=== PATIENT | female | born 2000 | race Caucasian/White ===

== ENCOUNTER 2022-03-01 15:18 | Emergency (ER) | payer BC, SELFPAY ==
--- NOTE | ~2022-03-01 | XR_ITS ---
EXAMINATION: XR FINGER, RIGHT CLINICAL INFORMATION: Pain. Injury. COMPARISON: None TECHNIQUE: 3 views of the right hand second digit. FINDINGS: No fracture or cortical disruption. Alignment is anatomic. Joint spaces are maintained. The soft tissues are unremarkable. XR/XR finger RT min 2V IMPRESSION: Normal finger radiographs.
[2022-03-01 15:24] VITALS: BP 150/87; PULSE 81; RESP 19; TEMP 36.1; O2SAT 98; BMI 45.8
--- NOTE | 2022-03-01 15:48 | ED.EXTPRO ---
HPI - Extremity Problem General Chief complaint: Extremity Injury, Upper Stated complaint: finger lac Time Seen by Provider: 03/01/22 15:48 Source: patient Mode of arrival: ambulatory Limitations: no limitations History of Present Illness HPI Narrative: Patient presents emergency department for evaluation of an injury to her right index finger. She states just prior to arrival she slammed her finger in the car door. She is right-hand dominant. Bleeding was initially controlled, however the pain and swelling has increased. Therefore she came for evaluation. Denies numbness or tingling to the finger. Related Data Allergies Allergy/AdvReac Type Severity Reaction Status Date / Time No Known Allergies Allergy Verified 03/01/22 15:28 Review of Systems Review of Systems: Musculoskeletal: Pain, swelling to the right index finger Skin: Laceration to her base of the nail border Yes all other systems are reviewed and are negative [facility] Past Medical History Attestation statement: The following information was validated with the patient. Source: old records reviewed Medical History No known health problems Social History Social History Advance Directives: No Advance Directives Information Provided: No Patient : No Physical Exam Vital Signs: Vital Signs: Last Vital Signs Temp 97.0 F 03/01/22 15:24 Pulse 81 03/01/22 15:24 Resp 19 03/01/22 15:24 BP 150/87 H 03/01/22 15:24 Pulse Ox 98 03/01/22 15:24 BMI result Body Mass Index 45.8 Appearance: Alert.?Oriented to person, place and time. No acute distress.?Normal affect. Eyes: Pupils equal, round and reactive to light.? ENT: Pharynx normal.?? Neck: Normal inspection.? Neck supple.?? CVS: Heart sounds normal. Normal heart rate and rhythm.? Pulses normal.?? Respiratory: No respiratory distress.? Lung sounds clear to auscultation bilaterally?? Abdomen: Soft and non-tender. Skin: Skin warm and dry.? Normal skin color.? 0.5cm Laceration to right index finger, no active bleeding Extremities: No lower extremity edema.?? Neuro: Moves all extremities spontaneously. Sensation intact bilaterally. No focal neuro deficits. Ambulates with normal steady gait. Course Course Course Narrative: Patient is a 21-year-old female who presents emergency department for evaluation of a laceration to the right index finger with pain after slamming it in a door. Laceration was cleansed with normal saline, wound edges were well approximated with no acute bleeding, skin closure with skin glue. XR obtained of the finger reveals no acute fracture. Advised for plan of care for discharge home, keeping the finger drive for 24-48 hours. Advised that the skin glue will fall off on its own. Tylenol and ibuprofen as needed for pain, may apply ice. Follow-up with primary care provider as needed. MDM - Extremity (Nontraumatic) Medical Records Attestation: I reviewed the patient's medical records. Imaging Data XR finger: Radiologist's impression: FINDINGS: No fracture or cortical disruption. Alignment is anatomic. Joint spaces are maintained. The soft tissues are unremarkable.? XR/XR finger RT min 2V IMPRESSION: Normal finger radiographs. Discharge Plan Discharge Clinical Impression: Laceration of finger Patient Disposition: Home, Self-Care Instructions: Finger Laceration (ED) Additional Instructions: The x-ray reveals no broken bone in your finger. You can take ibuprofen 200 mg, 3 tablets (600mg) every 6-8 hours as needed for pain, in addition to Tylenol 500 mg, 2 tablets (1,000mg) every 4-6 hours as needed for pain, but not to exceed 3 doses daily (3,000mg).? Please return to the emergency department any new or worsening symptoms or concerns. You may follow-up with your primary care provider as needed.
== END 2022-03-01 16:52 | disposition home or self-care (01) ==
PROVIDERS: Emergency Provider Emergency Medicine
DX: S61.210A Laceration without foreign body of right index finger without damage to nail, initial encounter (principal); M79.644 Pain in right finger(s); Y29.XXXA Contact with blunt object, undetermined intent, initial encounter; Y93.9 Activity, unspecified; Y92.810 Car as the place of occurrence of the external cause; Y99.9 Unspecified external cause status
CPT/HCPCS: 73140; 99282; 99283